=== PATIENT | female | born 1980 | race Caucasian/White ===

== ENCOUNTER → 2016-03-24 | Outpatient (CLI) | payer BC ==
--- NOTE | 2016-03-25 07:59 | US ---
EXAMINATION TYPE: US transvaginal DATE OF EXAM: 03/24/2016 4:09 PM COMPARISON: NONE CLINICAL HISTORY: 35-year-old female N92.0 Excessive Or Frequent Menstruation. Pre ablation scan. Date of LMP: 03/15/2016 TECHNIQUE: Multiple transvaginal sonographic images of the pelvis were obtained. Findings: Uterus: Anteverted measuring 9.9 x 5.5 x 5.3cm cm. Tiny cervical nabothian cysts. Endometrial Stripe: 1.0cm Right Ovary: 3.0 x 1.9 x 2.0cm cm for volume of 5.8 mL. There is a dominant follicle or functional c yst measuring 1.6 cm. Left Ovary: 2.7 x 1.9 x 2.1cm cm for a volume of 5.6 mL. No evident adnexal or cul-de-sac free fluid. IMPRESSION: 1.0 cm uniform endometrial stripe. Physiologic changes within the right ovary. No pelvic free fluid.
== END | disposition home or self-care (01) ==
LOC: RADUSWWP 15:40
PROVIDERS: ATTEND Obstetrics & Gynecology
DX: N92.0 Excessive and frequent menstruation with regular cycle (principal)
CPT/HCPCS: 76830

== ENCOUNTER → 2016-03-24 | Outpatient (CLI) | payer BC ==
[2016-03-24 16:11] LABS: Basophils % (A) 0 %; CH 28.6; CHCM 32.8; Eosinophils # (A) 0.1 k/uL (0-0.7); Eosinophils % (A) 2 %; HCT 39.9 % (34.0-46.0); HDW 2.57; HGB 12.9 gm/dL (11.4-16.0); Luc # (Auto) 0.09; Luc % (Auto) 2; Lymphocytes # (A) 1.6 k/uL (1.0-4.8); Lymphocytes % (A) 26 %; MCH 28.4 pg (25.0-35.0); MCHC 32.4 g/dL (31.0-37.0); MCV 87.8 fL (80.0-100.0); Mean Platelet Volume 6.9; Monocytes # (A) 0.3 k/uL (0-1.0); Monocytes % (A) 4 %; Neutrophils # (A) 4.1 k/uL (1.3-7.7); Neutrophils % (A) 66 %; RBC 4.55 m/uL (3.80-5.40); RDW 12.2 % (11.5-15.5); WBC 6.2 k/uL (3.8-10.6); WBC (Perox) 6.29
== END | disposition home or self-care (01) ==
LOC: LABPAT 15:33
PROVIDERS: ATTEND Obstetrics & Gynecology
DX: Z01.812 Encounter for preprocedural laboratory examination (principal)
CPT/HCPCS: 36415; 85025

== ENCOUNTER 2016-04-06 06:01 | Day surgery (SDC) | payer BC ==
[2016-03-31 15:41] VITALS: BMI 22.6
--- NOTE | 2016-04-03 13:16 | P.HPOB ---
History of Present Illness H&P Date: 04/03/16 Chief Complaint: Menorrhagia This patient is a pleasant 35 yr female who presented requesting an endometrial ablation secondary to heavy and long menses. Evaluation has included a pelvic ultrasound which was normal. Menses are heavy enough to interfere with life activities. She is not interested in hormonal treatment and she has had a tubal ligation for control. Review of Systems Constitutional: Denies chills, Denies fever Cardiovascular: Denies chest pain, Denies shortness of breath Respiratory: Denies cough Gastrointestinal: Denies abdominal pain, Denies diarrhea, Denies nausea, Denies vomiting Genitourinary: Reports as per HPI, Reports menorrhagia Menstruation: Reports menses 8 or > days, Reports period heavy Musculoskeletal: Denies myalgias Past Medical History Additional Past Medical History / Comment(s): Hx kidney stones. Positive "P" antibody History of Any Multi-Drug Resistant Organisms: None Reported Past Surgical History: Tonsillectomy, Tubal Ligation Past Anesthesia/Blood Transfusion Reactions: Postoperative Nausea & Vomiting ( PONV) Past Psychological History: No Psychological Hx Reported Smoking Status: Former smoker Past Alcohol Use History: Occasional Additional Past Alcohol Use History / Comment(s): Smoked 1/2 PPD for 18 yrs, quit in 2014. Past Drug Use History: None Reported - Past Family History Daughter(s) Family Medical History: Cancer Medications and Allergies Home Medications Medication Instructions Recorded Confirmed Type No Known Home Medications [No 03/31/16 03/31/16 History Known Home Medications] Allergies Allergy/AdvReac Type Severity Reaction Status Date / Time Penicillins Allergy Rash/Hives Verified 03/31/16 15:33 Exam - OBG Physical Exam Abdomen: bowel sounds normal, no diffuse tenderness, no bruit present, no guarding noted, no hepatomegaly, no splenomegaly, no mass Vulva: both: normal Vagina: normal moisture, no discharge Cervix: no lesion, no discharge Uterus: normal size Adnexa: both: normal Results Transvaginal ultrasound on 03/24 was normal. Assessment and Plan (1) Menorrhagia Narrative/Plan: This is a pleasant 35 yr female with menorrhagia requesting endometrial ablation for treatment. She and I have discussed this surgery and risks: infection, bleeding, possible uterine perforation and/or thermal injury. All of the patients questions were answered and a written consent obtained. Plan is hysteroscopy, D&C, and Novasure endometrial ablation. Status: Chronic
[~2016-04-06 06:01] MED LIST: DEXAMETHASONE SOD PHOSPHATE 10 MG/ML 1 ML VIAL IV ONE; HYDROmorphone 1 MG/ML 1 ML SYRINGE IVP PRN; LACTATED RINGERS 1,000 ML IV SCH; MIDAZOLAM 2 MG/2 ML VIAL IV PRN; ONDANSETRON 4 MG/2 ML VIAL IVP ONE; Pre Op ABX Message 1 EACH MISC MISCELLANE ONE; SCOPOLAMINE 1.5MG/72HR PATCH TRANSDERM ONE
[2016-04-06] MEDS ORDERED: LIDOCAINE 1% 20 ML VIAL (10MG/ML) FOR IV START INTRADERMA ONE (06:15)
[2016-04-06] MEDS ORDERED: PROPOFOL 10 MG/ML 20 ML VIAL IV ONE (06:53)
[2016-04-06] MEDS ORDERED: fentaNYL (PF) 50 MCG/ML 2 ML AMP ONE (06:53)
[2016-04-06] MEDS ORDERED: MIDAZOLAM 2 MG/2 ML VIAL ONE (06:53)
[2016-04-06] MEDS ORDERED: KETOROLAC 30 MG/ML 1 ML VIAL ONE (06:53)
[2016-04-06] MEDS ORDERED: LIDOCAINE 1% INJ 10MG/ML (20 ML MDV) ONE (06:53)
[2016-04-06 07:25] VITALS: TEMP 98.4
--- NOTE | 2016-04-06 07:28 | P.OP ---
Date of Procedure: 04/06/16 Preoperative Diagnosis: Menorrhagia Postoperative Diagnosis: Same Procedure(s) Performed: #1: Hysteroscopy. 2: Dilation and curettage. #3: NovaSure endometrial ablation. Anesthesia: MAC Surgeon: Leonard French Estimated Blood Loss (ml): 10 Urine output (ml): 30 Pathology: other (Uterine curettings) Condition: stable Disposition: PACU Indications for Procedure: Please see dictated H&P for intimate details of this patient's admission. Brief summary this is a pleasant 35-year-old multiparous patient with persistent menorrhagia requesting NovaSure endometrial ablation for treatment. Patient does understand the surgery and risks including risks of infection, bleeding, possible uterine perforation, and/or thermal injury. All the patient' s questions are answered and a written consent is obtained. Operative Findings: This patient had a normal intrauterine cavity without evidence of polyps, fibroids, or other growths. Description of Procedure: This patient is taken to the operating room where she is laid in the supine position. She subsequent undergoes general mask anesthesia without incident. With adequate level of anesthesia placed in dorsal lithotomy position. She has a vaginal perineal prep and drape. Examination under anesthesia shows a mid position uterus of normal size. I placed a weighted speculum the posterior vagina. The bladder is drained for 30 mL of clear urine. I grabbed the anterior lip of the cervix with an Allis clamp. Uterus is gently sounded to approximately 9 cm. With this done gentle dilation is done of the endocervix to allow the hysteroscope easily and uterine cavity. Hysteroscopy is performed and the intrauterine cavity appears normal and measures 6.5 cm in length. With this done the hysteroscope was then removed. Cervix is dilated more to allow a small curette easily and the uterine cavity. A gentle but vigorous 4 quadrant curettage is done for adequate sampling. With this done I open the NovaSure device appears to be intact. It is set at a length of 6.5 cm and then seated in the uterine cavity to a width of 4.7 cm. It does past cavity integrity test. It is then enabled at a 168 W setting for 75 seconds. The NovaSure device is then removed and again appears to be intact. Hysteroscopy is then performed again and the uterine cavity appears completely ablated up to the endocervix. This done the procedure is terminated. Allis clamps removed the weighted speculum was removed. All counts are correct 3. Patient is awakened from anesthesia and taken recovery room satisfactory condition. There are no complications.
[2016-04-06 08:01] VITALS: RESP 18
[2016-04-06 08:18] VITALS: BP 108/75; PULSE 68
== END 2016-04-06 08:34 | disposition home or self-care (01) ==
LOC: OR 06:01
PROVIDERS: ATTEND Obstetrics & Gynecology
DX: N92.0 Excessive and frequent menstruation with regular cycle (principal); Z88.0 Allergy status to penicillin; Z87.891 Personal history of nicotine dependence
CPT/HCPCS: 81025; 88305; 58563; J2250; J1100; J2405; J2001; J3010; J1885; J2704

== ENCOUNTER → 2017-02-23 | Outpatient (CLI) | payer BC ==
[2017-02-23 10:26] LABS: Basophils % (A) 0 %; Eosinophils # (A) 0.1 k/uL (0-0.7); Eosinophils % (A) 1 %; HCT 41.3 % (34.0-46.0); HGB 13.3 gm/dL (11.4-16.0); Lymphocytes # (A) 1.4 k/uL (1.0-4.8); Lymphocytes % (A) 29 %; MCH 28.1 pg (25.0-35.0); MCHC 32.3 g/dL (31.0-37.0); MCV 87.1 fL (80.0-100.0); Mean Platelet Volume 7.5; Monocytes # (A) 0.2 k/uL (0-1.0); Monocytes % (A) 4 %; Neutrophils # (A) 3.2 k/uL (1.3-7.7); Neutrophils % (A) 64 %; Platelet Count 180 k/uL (150-450); RBC 4.74 m/uL (3.80-5.40); RDW 13.4 % (11.5-15.5)
[2017-02-23 10:38] LABS: ALT 31 U/L (9-52); AST 18 U/L (14-36); Albumin 4.4 g/dL (3.5-5.0); Alkaline Phosphatase 69 U/L (38-126); Anion Gap 10 mmol/L; Blood Urea Nitrogen 12 mg/dL (7-17); Calcium 9.6 mg/dL (8.4-10.2); Carbon Dioxide 28 mmol/L (22-30); Chloride 105 mmol/L (98-107); Cholesterol 196 mg/dL (<200); Glucose 99 mg/dL (74-99); HDL Cholesterol 59 mg/dL (40-60); LDL Cholesterol,Calculated 118 mg/dL (0-99); Potassium 4.3 mmol/L (3.5-5.1); Sodium 143 mmol/L (137-145); Total Bilirubin 0.6 mg/dL (0.2-1.3); Triglycerides 94 mg/dL (<150)
[2017-02-23 10:54] LABS: T4, Free (Free Thyroxine) 0.93 ng/dL (0.78-2.19)
[2017-02-23 16:31] LABS: Insulin Level 8.6 mIU/mL (3.0-25.0)
== END | disposition home or self-care (01) ==
LOC: LABWHC1 09:53
PROVIDERS: ATTEND Family Medicine
DX: Z00.00 Encounter for general adult medical examination without abnormal findings (principal); R53.83 Other fatigue; R63.5 Abnormal weight gain
CPT/HCPCS: 36415; 80053; 80061; 82306; 82533; 83001; 83002; 83525; 84439; 84443; 85025

== ENCOUNTER → 2018-10-21 | Outpatient (CLI) | payer BC ==
--- NOTE | 2018-10-21 14:43 | CT ---
EXAMINATION TYPE: CT abdomen pelvis wo con DATE OF EXAM: 10/21/2018 COMPARISON: 10/06/2010 HISTORY: 38-year-old female Left flank pain with hematuria. History of stones. CT DLP: 344.2 mGycm. Automated exposure control for dose reduction was used. TECHNIQUE: Contiguous axial scanning of the abdomen and pelvis without IV contrast. Coronal and sagit med reconstructions performed. FINDINGS: Heart normal size without pericardial effusion. Lung bases clear without pleural effusion. Noncontrast appearance of the liver shows a subcentimeter hypodense lesion along the falciform ligame nt, likely tiny cyst. Noncontrast appearance of the gallbladder, adrenal glands, right kidney, spleen, and pancreas appear within normal limits. 1.5 cm calculus centrally within the left midpole with mild pelviectasis and possible punctate 1 mm c alculus at the left UPJ. Scattered nonenlarged and borderline sized mesenteric lymph nodes measuring up to 8 mm likely reactiv e/post inflammatory. No dilated small bowel, free fluid, or free air. Cecum hangs low within the pelvis. Appendix not delineated from adjacent bowel loops and adnexal stru ctures. Mild to moderate stool burden. No pericolonic inflammatory change. Mild circumferential bladder wall thickening. Multiple phleboliths on the right side of the pelvis. U terus anteverted. Moderate cul-de-sac free fluid likely physiologic. 3.5 cm cystic structure left adn exa. No pelvic lymphadenopathy. Bones: Mild to moderate degenerative disc disease L5-S1. IMPRESSION: 1. Possible punctate 1 mm calculus at the left UPJ with associated mild pelviectasis. 2. A 1.5 cm calculus centrally within the left renal midpole. 3. Mild circumferential bladder wall thickening. Correlate to exclude cystitis. 4. 3.5 cm cystic structure in the left adnexa, probable dominant follicle or functional cyst. 5. Moderate cul-de-sac free fluid likely physiologic. Clinically correlate.
== END | disposition home or self-care (01) ==
LOC: RADCTMAIN 12:35
PROVIDERS: ATTEND Family Medicine
DX: N20.0 Calculus of kidney (principal); N32.89 Other specified disorders of bladder; N83.8 Other noninflammatory disorders of ovary, fallopian tube and broad ligament
CPT/HCPCS: 74176

== ENCOUNTER → 2019-01-23 | Outpatient (CLI) | payer BC ==
--- NOTE | 2019-01-23 11:02 | MM ---
Reason for exam: screening (asymptomatic). Baseline mammogram. History: Took hormonal contraceptives beginning at age 19. Physical Findings: Nurse did not find any significant physical abnormalities on exam. MG 3D Screening Mammo W/Cad Bilateral CC and MLO view(s) were taken. The breast tissue is heterogeneously dense. This may lower the sensitivity of mammography. No suspicious abnormality. No significant new findings when compared with previous films. These results were verbally communicated with the patient and result sheet given to the patient on 01/23/19. ASSESSMENT: Negative, BI-RAD 1 RECOMMENDATION: Routine screening mammogram of both breasts in 1 year.
== END | disposition home or self-care (01) ==
LOC: RADMAMWWP 10:19
PROVIDERS: ATTEND Obstetrics & Gynecology
DX: Z12.31 Encounter for screening mammogram for malignant neoplasm of breast (principal)
CPT/HCPCS: 77063; 77067

== ENCOUNTER → 2020-07-03 | Outpatient (CLI) | payer BC ==
[2020-07-03 14:21] LABS: Basophils # (A) 0.02 X 10*3/uL (0.00-0.10); Basophils % (A) 0.3 %; Eosinophils % (A) 1.5 %; HCT 40.2 % (37.2-46.3); HGB 12.9 g/dL (12.0-15.0); Lymphocytes # (A) 1.31 X 10*3/uL (0.90-5.00); Lymphocytes % (A) 20.2 %; MCH 28.2 pg (27.0-32.0); MCHC 32.1 g/dL (32.0-37.0); Mean Platelet Volume 10.7 fL (9.5-12.2); Monocytes # (A) 0.53 X 10*3/uL (0.20-1.00); Monocytes % (A) 8.2 %; Neutrophils % (A) 69.3 %; Platelet Count 163 X 10*3/uL (140-440); RBC 4.57 X 10*6/uL (4.10-5.20); RDW 12.5 % (11.5-14.5); WBC 6.49 X 10*3/uL (4.50-10.00)
[2020-07-03 16:44] LABS: African American GFR (CKD) 82.2 (60.0-200.0); Albumin 4.3 g/dL (3.80-4.90); Albumin/Globulin Ratio 2.15 (1.60-3.17); Anion Gap 7.1 mmol/L (4.00-12.00); Carbon Dioxide 23.9 mmol/L (21.6-31.8); Chol/HDL Ratio 3.68; LDL Cholesterol,Calculated 118.6 mg/dL (0.0-131.0); Non-African American GFR(CKD) 70.9 (60.0-200.0); Potassium 4.4 mmol/L (3.5-5.5); Total Bilirubin 0.4 mg/dL (0.2-1.2); Total Protein 6.3 g/dL (6.2-8.2); VLDL Calculation 15.4 mg/dL (5.00-40.00)
[2020-07-03 16:52] LABS: T4, Free (Free Thyroxine) 1.1 ng/dL (0.80-1.80)
== END | disposition home or self-care (01) ==
LOC: LABWHC1 08:43
PROVIDERS: ATTEND Nurse Practitioner Adult Health
DX: Z00.00 Encounter for general adult medical examination without abnormal findings (principal)
CPT/HCPCS: 36415; 80053; 80061; 84439; 84443; 85025

== ENCOUNTER 2020-07-07 16:47 | Emergency (ER) | payer BC ==
[2020-07-07 16:53] VITALS: TEMP 101
--- NOTE | 2020-07-07 17:01 | ED ---
General Adult HPI - General Chief complaint: Arrhythmia/Palpitations Stated complaint: side pain, SOB Time Seen by Provider: 07/07/20 17:00 Source: patient Mode of arrival: wheelchair Limitations: no limitations - History of Present Illness Initial comments: Patient presents the ED with her for evaluation. Patient states that she developed a fever, rapid heart palpitations and dyspnea earlier this afternoon. Patient states that her palpitations and dyspnea have currently resolved. Patient states that she took a dose of ibuprofen and Tylenol about 5 hours ago. Patient also states that she is currently on Bactrim antibiotic treatment for a UTI. Patient states that she was diagnosed with a UTI about 5 days ago, and she states that she has been taking the Bactrim ever since then. Patient also states that she has had left flank pain and bilateral "groin pain" for the past week or so. Patient states that she had Covid in April, and she denies Covid vaccination. Patient denies trauma or injury, headache, focal neuro deficit, sore throat, chest pain, cough or cold symptoms, dizziness/syncope, abdominal pain, nausea/vomiting/diarrhea, dysuria/hematuria/urinary frequency/urinary symptoms, leg or calf swelling or pain, or any other symptoms or complaints. - Related Data Home Medications Medication Instructions Recorded Confirmed Budesonide/Glycopyr/Formoterol 2 puff INHALATION RT-BID PRN 07/07/20 07/07/20 [Breztri Aerosphere Inhaler] Cetirizine HCl 10 mg PO DAILY 07/07/20 07/07/20 Polyethylene Glycol 3350 [Miralax] 17 gm PO DAILY PRN 07/07/20 07/07/20 Sulfamethox-Tmp 800-160Mg [Bactrim 1 tab PO Q12HR 07/07/20 07/07/20 DS 800-160 mg] Tamsulosin HCl [Flomax] 0.4 mg PO DAILY 07/07/20 07/07/20 Allergies Allergy/AdvReac Type Severity Reaction Status Date / Time Penicillins Allergy Rash/Hives Verified 07/07/20 19:03 Review of Systems ROS Statement: Those systems with pertinent positive or pertinent negative responses have been documented in the HPI. ROS Other: All systems not noted in ROS Statement are negative. Past Medical History Additional Past Medical History / Comment(s): Covid 05/05 History of Any Multi-Drug Resistant Organisms: None Reported Past Surgical History: Tonsillectomy, Tubal Ligation, Uterine Ablation Past Psychological History: No Psychological Hx Reported Smoking Status: Former smoker Past Alcohol Use History: Occasional Past Drug Use History: Unable to Obtain General Exam Limitations: no limitations General appearance: alert, in no apparent distress Head exam: Present: atraumatic, normocephalic Eye exam: Present: normal appearance, EOMI ENT exam: Present: normal oropharynx, mucous membranes moist Neck exam: Present: other (Trachea is in midline). Absent: tenderness, meningis mus Respiratory exam: Present: normal lung sounds bilaterally. Absent: respiratory distress, wheezes, rales, rhonchi, stridor Cardiovascular Exam: Present: normal rhythm, tachycardia, normal heart sounds, other (Normal radial pulses bilaterally) GI/Abdominal exam: Present: soft. Absent: distended, tenderness, guarding Extremities exam: Present: other (Negative Homans sign bilaterally). Absent: tenderness, pedal edema, calf tenderness Back exam: Absent: tenderness, CVA tenderness (R), CVA tenderness (L) Neurological exam: Present: alert, oriented X3. Absent: motor sensory deficit Psychiatric exam: Present: normal affect, normal mood Skin exam: Present: warm, dry, intact, normal color Course Vital Signs 07/07/20 07/07/20 07/07/20 16:48 17:53 22:39 Temperature 101.0 F H Pulse Rate 132 H 81 78 Respiratory 22 16 18 Rate Blood Pressure 101/62 121/78 129/78 O2 Sat by Pulse 98 98 99 Oximetry - Reevaluation(s) Reevaluation #1: 07/07/20 23:00 Patient remains in a sinus rhythm on the cardiac catheterization technician, and her heart rate has now improved to the 80s. Patient states that her symptoms (palpitations and dyspnea) have now resolved. Patient denies development of any new symptoms wh ile in the ED. Patient remains alert and breathing comfortably with a normal room air oxygen saturation. Patient and are aware the patient's test results, and patient feels comfortable going home at this time. Patient was counseled about fever control, palpitations and dyspnea. Patient was instructed to complete the course of Bactrim that she is currently taking. Patient was also instructed to follow up closely with her primary care provider. Patient was clearly explained return and follow-up instructions, and she was instructed to have a low threshold for return to the emergency department should her symptoms worsen. Patient feels comfortable with this plan. EKG Findings - EKG Comments: EKG Findings:: Sinus tachycardia, ventricular rate of 114 bpm, no ectopy, normal RI and QRS intervals, normal QT interval, normal axis, no ST or T-wave abnormality Medical Decision Making - Medical Decision Making Patient is currently in a normal sinus rhythm on the cardiac catheterization technician. Patient's labs are fairly unremarkable, other than mild thrombocytopenia and mild l eukopenia. Patient's UA is not suggestive of infection. Patient's imaging studies are fairly unremarkable. Patient has no evidence of pneumonia on chest imaging. Patient has no obstructing stones seen on CT abdomen/pelvis. I do not suspect that the patient's symptoms/fever are from an emergent medical condition at this time. Patient was instructed to complete the course of Bactrim that she is currently taking. Will discharge patient home with her at this time. Patient was instructed to follow up closely with her primary care provider for further evaluation of her symptoms and her thrombocytopenia/leukopenia. - Lab Data Result diagrams: 07/07/20 17:27 07/07/20 17:27 Lab Results 07/07/20 07/07/20 07/07/20 Range/Units 17:27 17:27 17:27 WBC 3.2 L (3.8-10.6) k/uL RBC 4.41 (3.80-5.40) m/uL Hgb 12.5 (11.4-16.0) gm/dL Hct 37.5 (34.0-46.0) % MCV 85.1 (80.0-100.0) fL MCH 28.4 (25.0-35.0) pg MCHC 33.4 (31.0-37.0) g/dL RDW 13.2 (11.5-15.5) % Plt Count 94 L (150-450) k/uL MPV 8.5 Neutrophils % 85 % Lymphocytes % 7 % Monocytes % 6 % Eosinophils % 1 % Basophils % 0 % Neutrophils # 2.7 (1.3-7.7) k/uL Lymphocytes # 0.2 L (1.0-4.8) k/uL Monocytes # 0.2 (0-1.0) k/uL Eosinophils # 0.0 (0-0.7) k/uL Basophils # 0.0 (0-0.2) k/uL Manual Slide Review Performed D-Dimer (<0.60) mg/L FEU Sodium 132 L (137-145) mmol/L Potassium 4.2 (3.5-5.1) mmol/L Chloride 104 (98-107) mmol/L Carbon Dioxide 21 L (22-30) mmol/L Anion Gap 7 mmol/L BUN 9 (7-17) mg/dL Creatinine 1.00 (0.52-1.04) mg/dL Est GFR (CKD-EPI)AfAm 83 (>60 ml/min/1.73 sqM) Est GFR (CKD-EPI)NonAf 72 (>60 ml/min/1.73 sqM) Glucose 111 H (74-99) mg/dL Plasma Lactic Acid Dandre (0.7-2.0) mmol/L Calcium 8.4 (8.4-10.2) mg/dL Total Bilirubin <0.1 L (0.2-1.3) mg/dL AST 32 (14-36) U/L ALT 22 (4-34) U/L Alkaline Phosphatase 63 (38-126) U/L Total Protein 6.3 (6.3-8.2) g/dL Albumin 4.0 (3.5-5.0) g/dL Urine Color Light Yellow Urine Appearance Clear (Clear) Urine pH 5.5 (5.0-8.0) Ur Specific [place] 1.017 (1.001-1.035) Urine Protein Negative (Negative) Urine Glucose (UA) Negative (Negative) Urine Ketones Negative (Negative) Urine Blood Trace H (Negative) Urine Nitrite Negative (Negative) Urine Bilirubin Negative (Negative) Urine Urobilinogen <2.0 (<2.0) mg/dL Ur Leukocyte Esterase Negative (Negative) Urine RBC 1 (0-5) /hpf Urine WBC <1 (0-5) /hpf Ur Squamous Epith Cells 1 (0-4) /hpf Urine Mucus Rare H (None) /hpf 07/07/20 07/07/20 Range/Units 17:27 17:27 WBC (3.8-10.6) k/uL RBC (3.80-5.40) m/uL Hgb (11.4-16.0) gm/dL Hct (34.0-46.0) % MCV (80.0-100.0) fL MCH (25.0-35.0) pg MCHC (31.0-37.0) g/dL RDW (11.5-15.5) % Plt Count (150-450) k/uL MPV Neutrophils % % Lymphocytes % % Monocytes % % Eosinophils % % Basophils % % Neutrophils # (1.3-7.7) k/uL Lymphocytes # (1.0-4.8) k/uL Monocytes # (0-1.0) k/uL Eosinophils # (0-0.7) k/uL Basophils # (0-0.2) k/uL Manual Slide Review D-Dimer 0.80 H (<0.60) mg/L FEU Sodium (137-145) mmol/L Potassium (3.5-5.1) mmol/L Chloride (98-107) mmol/L Carbon Dioxide (22-30) mmol/L Anion Gap mmol/L BUN (7-17) mg/dL Creatinine (0.52-1.04) mg/dL Est GFR (CKD-EPI)AfAm (>60 ml/min/1.73 sqM) Est GFR (CKD-EPI)NonAf (>60 ml/min/1.73 sqM) Glucose (74-99) mg/dL Plasma Lactic Acid Dandre 1.5 (0.7-2.0) mmol/L Calcium (8.4-10.2) mg/dL Total Bilirubin (0.2-1.3) mg/dL AST (14-36) U/L ALT (4-34) U/L Alkaline Phosphatase (38-126) U/L Total Protein (6.3-8.2) g/dL Albumin (3.5-5.0) g/dL Urine Color Urine Appearance (Clear) Urine pH (5.0-8.0) Ur Specific [place] (1.001-1.035) Urine Protein (Negative) Urine Glucose (UA) (Negative) Urine Ketones (Negative) Urine Blood (Negative) Urine Nitrite (Negative) Urine Bilirubin (Negative) Urine Urobilinogen (<2.0) mg/dL Ur Leukocyte Esterase (Negative) Urine RBC (0-5) /hpf Urine WBC (0-5) /hpf Ur Squamous Epith Cells (0-4) /hpf Urine Mucus (None) /hpf - Radiology Data Radiology results: report reviewed (CT angiography chest: No acute PE or cardiopulmonary abnormality; CT abdomen/pelvis without contrast: Large calculus left kidney without significant change compared to old exam, left side hydron ephrosis but no obstructing calculus seen, mild subsegmental atelectasis left lung base) Disposition Clinical Impression: Palpitations, Acute febrile illness, Thrombocytopenia, Leukopenia Disposition: HOME SELF-CARE Condition: Stable Instructions (If sedation given, give patient instructions): Heart Palpitations (ED), Fever in Adults (ED), Thrombocytopenia (ED) Additional Instructions: Return to the ER immediately should you develop increased shortness of breath, any significant pain, chest pain, increased or persistent heart palpitations, feeling dizzy or faint, or new or worsening symptoms. Follow up closely with your primary care provider. Is patient prescribed a controlled substance at d/c from ED?: No Referrals: Shad Lion MD [Primary Care Provider] - 1-2 days Time of Disposition: 23:09
[2020-07-07] MEDS ORDERED: ACETAMINOPHEN TAB 500 MG TAB PO STA (17:09)
[2020-07-07] MEDS ORDERED: SODIUM CHLORIDE 0.9% 1,000 ML IV STA (17:09)
[2020-07-07 17:48] LABS: Appearance,Urine Clear (Clear); Bilirubin,Urine Negative (Negative); Blood,Urine Trace (Negative); Color,Urine Light Yellow; Glucose,Urine (UA) Negative (Negative); Ketones,Urine Negative (Negative); Leukocyte Esterase,Urine Negative (Negative); Mucus,Urine Rare /hpf; Nitrite,Urine Negative (Negative); PH, Urine 5.5 (5.0-8.0); Protein,Urine Negative (Negative); RBC,Urine 1 /hpf (0-5); Specific Gravity,Urine 1.017 (1.001-1.035); Squamous Epithelial Cell,Urine 1 /hpf (0-4); Urobilinogen,Urine <2.0 mg/dL (<2.0); WBC,Urine <1 /hpf (0-5)
[2020-07-07 18:12] LABS: ALT 22 U/L (4-34); AST 32 U/L (14-36); African American GFR (CKD) 83 (>60 ml/min/1.73 sqM); Alkaline Phosphatase 63 U/L (38-126); Anion Gap 7 mmol/L; Blood Urea Nitrogen 9 mg/dL (7-17); Calcium 8.4 mg/dL (8.4-10.2); Carbon Dioxide 21 mmol/L (22-30); Chloride 104 mmol/L (98-107); Glucose 111 mg/dL (74-99); Non-African American GFR(CKD) 72 (>60 ml/min/1.73 sqM); Potassium 4.2 mmol/L (3.5-5.1); Sodium 132 mmol/L (137-145); Total Bilirubin <0.1 mg/dL (0.2-1.3); Total Protein 6.3 g/dL (6.3-8.2)
[2020-07-07 18:39] LABS: Basophils % (A) 0 %; Eosinophils % (A) 1 %; HCT 37.5 % (34.0-46.0); HGB 12.5 gm/dL (11.4-16.0); Lymphocytes # (A) 0.2 k/uL (1.0-4.8); Lymphocytes % (A) 7 %; MCH 28.4 pg (25.0-35.0); MCHC 33.4 g/dL (31.0-37.0); MCV 85.1 fL (80.0-100.0); Mean Platelet Volume 8.5; Monocytes # (A) 0.2 k/uL (0-1.0); Monocytes % (A) 6 %; Neutrophils # (A) 2.7 k/uL (1.3-7.7); Neutrophils % (A) 85 %; RBC 4.41 m/uL (3.80-5.40); RDW 13.2 % (11.5-15.5); WBC 3.2 k/uL (3.8-10.6)
[2020-07-07 19:03] LABS: Platelet Count 94 k/uL (150-450)
--- NOTE | 2020-07-07 21:14 | CT ---
EXAMINATION TYPE: CT abdomen pelvis wo con DATE OF EXAM: 07/07/2020 COMPARISON: 10/21/2018 HISTORY: LT flank pain, fever CT DLP: 661 mGycm Automated exposure control for dose reduction was used. Images obtained from the diaphragm to the floor the pelvis with no contrast. Lung bases are clear of consolidation. There is mild subsegmental atelectasis at the left lung base. There is no pleural effusion. Heart size is normal. There is no pericardial effusion. There is small hiatal hernia. Spleen liver gallbladder appear normal. Bile ducts are not dilated. Sto mach is intact. There is no pancreatic mass. There is no adrenal mass. Kidneys have normal size. There is 1.5 cm calculus in the left kidney. Ther e is left side hydronephrosis. I see no definite hydroureter. Right kidney shows no sign of obstructi on. There is no evidence of a renal mass. There is no retroperitoneal adenopathy. The bladder distends smoothly. There is no inguinal hernia. T here is no free fluid in the pelvis. Uterus is anteverted. There is small amount of free fluid in the cul-de-sac. There is no mesenteric edema. There is no ascites or free air. There is no bowel obstruction. Appendi x is not definitely seen. No sign of thickened appendix. Lumbar vertebra have normal alignment. There is vacuum disc at L5-S1. There is no compression fractur e. IMPRESSION: Large calculus left kidney without significant change compared to old exam. Left side hydronephrosis but no obstructing calculus seen. This appears similar to old exam. Mild subsegmental atelectasis lef t lung base is new compared to old exam.
--- NOTE | 2020-07-07 21:16 | CT ---
EXAMINATION TYPE: CT chest angio for PE DATE OF EXAM: 07/07/2020 COMPARISON: None available. HISTORY: Elevated d-dimer, dyspnea, tachycardia. Hx covid April 2020 CT DLP: 248 mGycm Automated exposure control for dose reduction was used. CONTRAST: CT Chest for pulmonary embolism performed with with IV Contrast, patient injected with 100 mL of Isov ue 370. FINDINGS: LUNGS: There is mild dependent atelectasis. Otherwise lungs are grossly clear, there is no concerning parenchymal mass or nodule identified. There is no pleural effusion or pneumothorax seen. The tra cheobronchial tree is patent. MEDIASTINUM: There is satisfactory enhancement of the pulmonary artery and its branches, there is no CT evidence for pulmonary embolism. There are no greater than 1 cm hilar or mediastinal lymph nodes. No pericardial effusion is seen. Incidental aberrant right subclavian artery. OTHER: No additional significant abnormality is seen. IMPRESSION: No acute PE or cardiopulmonary abnormality. Incidental aberrant right subclavian artery.
[2020-07-07 22:40] VITALS: BP 129/78; PULSE 78; RESP 18
== END 2020-07-07 23:19 | disposition home or self-care (01) ==
LOC: EC 16:47
DX: R00.2 Palpitations (principal); D69.6 Thrombocytopenia, unspecified; D72.819 Decreased white blood cell count, unspecified; K44.9 Diaphragmatic hernia without obstruction or gangrene; N13.2 Hydronephrosis with renal and ureteral calculous obstruction; Q27.8 Other specified congenital malformations of peripheral vascular system; Z87.891 Personal history of nicotine dependence; Z88.0 Allergy status to penicillin
CPT/HCPCS: 36415; 85379; 80053; 83605; 85025; 81001; 87040; 71275; 74176; 99285; 96360; Q9967; 93005

== ENCOUNTER → 2020-12-20 | Outpatient (CLI) | payer BC ==
[2020-12-20 12:45] LABS: Basophils % (A) 0 %; Eosinophils # (A) 0.1 k/uL (0-0.7); Eosinophils % (A) 2 %; HCT 42.3 % (34.0-46.0); HGB 14.6 gm/dL (11.4-16.0); Lymphocytes % (A) 35 %; MCHC 34.5 g/dL (31.0-37.0); MCV 86.9 fL (80.0-100.0); Mean Platelet Volume 7.5; Monocytes # (A) 0.2 k/uL (0-1.0); Monocytes % (A) 4 %; Neutrophils # (A) 3.3 k/uL (1.3-7.7); Neutrophils % (A) 57 %; Platelet Count 178 k/uL (150-450); RBC 4.87 m/uL (3.80-5.40); RDW 12.6 % (11.5-15.5); WBC 5.7 k/uL (3.8-10.6)
[2020-12-20 12:49] LABS: Appearance,Urine Clear (Clear); Bilirubin,Urine Negative (Negative); Blood,Urine Trace (Negative); Color,Urine Yellow; Glucose,Urine (UA) Negative (Negative); Ketones,Urine Negative (Negative); Leukocyte Esterase,Urine Negative (Negative); Mucus,Urine Rare /hpf; Nitrite,Urine Negative (Negative); PH, Urine 5.5 (5.0-8.0); Protein,Urine Negative (Negative); RBC,Urine 13 /hpf (0-5); Specific Gravity,Urine 1.019 (1.001-1.035); Urobilinogen,Urine <2.0 mg/dL (<2.0); WBC,Urine 1 /hpf (0-5)
[2020-12-20 12:54] LABS: African American GFR (CKD) >90 (>60 ml/min/1.73 sqM); Anion Gap 8 mmol/L; Blood Urea Nitrogen 11 mg/dL (7-17); Carbon Dioxide 23 mmol/L (22-30); Chloride 107 mmol/L (98-107); Glucose 100 mg/dL (74-99); Non-African American GFR(CKD) 90 (>60 ml/min/1.73 sqM); Potassium 4.1 mmol/L (3.5-5.1); Sodium 138 mmol/L (137-145)
== END | disposition home or self-care (01) ==
LOC: LABPAT 11:45
PROVIDERS: ATTEND Urology
DX: N20.0 Calculus of kidney (principal); R31.0 Gross hematuria
CPT/HCPCS: 36415; 80048; 81001; 85025; 87086

== ENCOUNTER 2020-12-30 10:01 | Day surgery (SDC) | payer BC ==
[2020-12-25 14:15] VITALS: BMI 25.8
[~2020-12-30 10:01] MED LIST changes: -DEXAMETHASONE SOD PHOSPHATE 10 MG/ML 1 ML VIAL IV ONE; +DEXAMETHASONE SOD PHOSPHATE 4 MG/ML 1 ML VIAL IV ONE; +HYDROmorphone 0.5 MG/0.5 ML SYRINGE IVP PRN; -HYDROmorphone 1 MG/ML 1 ML SYRINGE IVP PRN; -LACTATED RINGERS 1,000 ML IV SCH; -Pre Op ABX Message 1 EACH MISC MISCELLANE ONE
[2020-12-30] MEDS ORDERED: LIDOCAINE 1% (10MG/ML) FOR IV START SQ ONE (10:50)
[2020-12-30] MEDS: LACTATED RINGERS 1,000 ML IV SCH (10:50)
--- NOTE | 2020-12-30 10:53 | XR ---
EXAMINATION TYPE: XR KUB DATE OF EXAM: 12/30/2020 COMPARISON: 10/06/2010 HISTORY: Left kidney stone TECHNIQUE: One view abdominal series FINDINGS: The osseous structures are intact. The bowel gas pattern is nonspecific. Large left kidney stone flower suring 1.6 cm likely within the renal pelvis. Tiny calcifications in the pelvis likely vascular. IMPRESSION: 1. Left renal stone measuring 1.6 cm.
--- NOTE | 2020-12-30 10:56 | P.HPIHPCON ---
History of Present Illness H&P Date: 12/30/20 Chief Complaint: Left-sided renal stone This is a 40-year-old female history of a 1.6 cm left-sided lower pole stone. She symptomatically from her stone. Discussed with her given the location of her stone the preferred approach would be a percutaneous nephrolithotomy. Dis cussed with her the option of ESWL, ureteroscopy. Risk and benefit of each approach were discussed in detail. She agreed to proceed with left-sided PCNL. Discussed the risk which includes but not limited to bleeding, infection, injury to nearby organs which includes but not limited to bleeding, lung, bowel. Discussed with her potential of needing additional procedures in the future. Discussed risk from anesthesia. She understood all the risk and agreed to proceed Consent for Procedure: I have explained the operation/procedure to the patient, including the risks, benefits, side effects, alternative therapies (including not receiving the proposed treatment or service), the likelihood of the patient achieving his/her goals, and potential recuperation problems for the procedure/sedation/analgesia, as well as any blood products, if indicated. I also explained to the patient the risks, benefits and side effects of the alternatives, as well as the risks related to not receiving the proposed procedure, care, treatment, or services. - Constitutional Constitutional: Denies chills, Denies fever - EENT Ears, nose, mouth and throat: Denies headache, Denies sore throat - Cardiovascular Cardiovascular: Denies chest pain, Denies shortness of breath - Respiratory Respiratory: Denies cough, Denies 7 - Gastrointestinal Gastrointestinal: Denies abdominal pain, Denies diarrhea, Denies nausea, Denies vomiting - Genitourinary (Female) Genitourinary: Reports flank pain Past Medical History Past Medical History: Renal Disease Additional Past Medical History / Comment(s): Hx Covid 05/05. Hx of and current kidney stones. History of Any Multi-Drug Resistant Organisms: None Reported Past Surgical History: Tonsillectomy, Tubal Ligation, Uterine Ablation Past Anesthesia/Blood Transfusion Reactions: No Reported Reaction, Motion Sickness, Postoperative Nausea & Vomiting (PONV) Past Psychological History: No Psychological Hx Reported Smoking Status: Former smoker Past Alcohol Use History: Occasional Additional Past Alcohol Use History / Comment(s): Quit smoking in 2015. Past Drug Use History: None Reported - Past Family History Mother Family Medical History: No Reported History Medications and Allergies Home Medications Medication Instructions Recorded Confirmed Type Acetaminophen [Tylenol] 1,000 mg PO Q6H PRN 12/25/20 12/30/20 History Ibuprofen [Motrin] 600 mg PO BID PRN 12/25/20 12/25/20 History Allergies Allergy/AdvReac Type Severity Reaction Status Date / Time Penicillins Allergy Rash/Hives Verified 12/25/20 14:03 Surgical - Exam Vital Signs Temp Pulse Resp BP Pulse Ox 97.3 F L 76 16 111/67 97 12/30/20 10:33 12/30/20 10:33 12/30/20 10:33 12/30/20 10:33 12/30/20 10:33 - General no distress, moderate pain - Eyes PERRL, normal ocular movement - ENT normal nares, normal mucosa - Respiratory normal expansion, normal respiratory effort - Abdomen Abdomen: soft Assessment and Plan Assessment: 40-year-old female history of left-sided renal stone -Or for left-sided PCNL
[2020-12-30] MEDS ORDERED: ACETAMINOPHEN TAB 325 MG TAB PO PRN (12:15)
[2020-12-30] MEDS ORDERED: MAG HYDROX/AL HYDROX/SIMETH 30 ML CUP PO PRN (12:15)
[2020-12-30] MEDS ORDERED: ONDANSETRON 4 MG/2 ML VIAL IVP PRN (12:15)
[2020-12-30] MEDS ORDERED: MORPHINE SULFATE 4 MG/ML SYRINGE IVP PRN (12:17)
[2020-12-30] MEDS ORDERED: fentaNYL (PF) 50 MCG/ML 2 ML AMP ONE (12:25)
[2020-12-30] MEDS ORDERED: PROPOFOL 10 MG/ML 20 ML VIAL IV ONE (12:25)
[2020-12-30] MEDS ORDERED: ROCURONIUM 10 MG/ML (5 ML VIAL) IV ONE (12:25)
[2020-12-30] MEDS ORDERED: MIDAZOLAM 2 MG/2 ML VIAL ONE (12:25)
[2020-12-30] MEDS ORDERED: LIDOCAINE 1% INJ 10MG/ML (20 ML MDV) ONE (12:25)
[2020-12-30] MEDS: GENTAMICIN 120 MG in SODIUM CHLORIDE 0.9% 100 ML IVPB PRN ×2 (12:28→13:11)
[2020-12-30] MEDS: CIPROFLOXACIN/DEXTROSE PMX 400 MG in DEXTROSE/WATER 1 200ML.BAG IVPB PRN ×2 (12:28→12:38)
[2020-12-30] MEDS ORDERED: LACTATED RINGERS 1,000 ML IV ONE (14:03)
--- NOTE | 2020-12-30 14:26 | FL ---
EXAMINATION TYPE: FL Perc Nephrostomy New Access DATE OF EXAM: 12/30/2020 COMPARISON: NONE HISTORY: Left renal calculus Procedure had been discussed with the patient by Dr. Ndiaye, risks, benefits, alternatives, were dis cussed and any questions were answered. Informed consent was obtained. The patient was in a semipro ne position prepped and draped on the OR table in the usual sterile fashion. Utilizing a 15 cm lengt h Chiba needle a single pass was made into a lower pole posterior calyx under fluoroscopic guidance. An 0.018 guidewire is passed through the needle and there was placement of a 6-Beninese catheter sheat h system. There was conversion to a 0.035 system was performed with passage of a guidewire into the ureter utilizing a directional catheter. A second safety wire was placed. Remaining portion of pro cedure performed by . Approximately 1 minute and 28 seconds of fluoroscopy was provided. IMPRESSION: 1. Successful intraoperative left nephrostomy prior to nephrolithotomy.
--- NOTE | 2020-12-30 14:34 | P.OP ---
Date of Procedure: 12/30/20 Preoperative Diagnosis: Left-sided renal stone Postoperative Diagnosis: Same Procedure(s) Performed: Left-sided percutaneous nephrolithotomy, cystoscopy, left ureteral catheterization Implants: 10-Finnish left nephrostomy tube Anesthesia: HILTONA Surgeon: Nabor Taylor Estimated Blood Loss (ml): 50 Pathology: other (left renal stone) Condition: stable Disposition: PACU Indications for Procedure: This is a 40-year-old female history of a 1.6 cm left-sided lower pole stone. She symptomatically from her stone. Discussed with her given the location of her stone the preferred approach would be a percutaneous nephrolithotomy. Discussed with her the option of ESWL, ureteroscopy. Risk and benefit of each approach were discussed in detail. She agreed to proceed with left-sided PCNL. Discussed the risk which includes but not limited to bleeding, infection, injury to nearby organs which includes but not limited to bleeding, lung, bowel. Discussed with her potential of needing additional procedures in the future. Discussed risk from anesthesia. She understood all the risk and agreed to proceed Operative Findings: Stone has migrated to the renal pelvis Description of Procedure: Patient was brought to the operating room general anesthesia was induced she was prepped and draped in sterile fashion and placed in frog leg position on the stretcher. Cystoscopy fitted with a 21-Finnish sheath was inserted per urethra, brief cystoscopy was performed showed no abnormality within the bladder, of note I was not able to visualize the dome lateral wall the bladder completely. Attention was then carried to the left ureteral orifice which was intubated with a balloon occluding catheter. 16-Finnish Bennett was placed, and the balloon catheter was secured to the Bennett. At this time the patient was placed in prone position, all pressure points were padded. The left flank was prepped and draped in sterile fashion. Next air was injected through the balloon occluding catheter, and left renal access was obtained by Dr. Garduno, please see his op note for his portion of the operation. After 2 wires were passed down the ureter a nephrostomy balloon dilator was passed over this wire, and under fluoroscopy the tract was dilated. Next a 30-Finnish access sheath was passed over the balloon dilator and into the kidney. The access was at the lower calyx. Next the rigid nephroscope was advanced through the access sheath and a large stone was visualized in the renal pelvis. Using the ultrasound the stone was fragmented into small fragments, the fragments were removed and sent for analysis. Repeat renoscopy showed no additional fragments within the kidney. Next a flexible cystoscope was advanced through the access sheath and renoscopy was performed evaluating all the calyx which showed no other stones within the kidney, there was no injury to the kidney. Next the flexible ureteroscope was advanced through the access sheath and down the ureter, the flexible ureteroscope was advanced all the way down to the distal ureter which showed no stone fragments, or any narrowing or strictures within the ureter. Pullback ureteroscopy was performed showed no injury to the ureter or any ureteral fragments. At this time a 10-Finnish nephrostomy tube was passed over the wire, the location was confirmed on fluoroscopy. The subcutaneous tissues were closed using 2-0 Vicryl in simple fashion. The tube was secured to the patient's skin using 2-0 silk. Sterile dressing was placed. Patient tolerated the procedure well was taken to recovery in stable condition
[2020-12-30] MEDS: KETOROLAC 30 MG/ML 1 ML VIAL IVP SCH ×3 (15:07→21:45)
[2020-12-30] MEDS: DEXTROSE 5%-0.45% NACL 1,000 ML IV SCH (15:37)
[2020-12-30] MEDS: ACETAMINOPHEN TAB 325 MG TAB PO SCH ×2 (16:05→20:19)
[2020-12-30] MEDS: HEPARIN SODIUM,PORCINE/PF 5,000 UNIT/0.5 ML SYRINGE SQ SCH (20:21)
[2020-12-31] MEDS ORDERED: LEVOFLOXACIN 500MG-D5W PMX 500 MG in DEXTROSE/WATER 1 100ML.BAG IVPB SCH
[2020-12-31] MEDS: ACETAMINOPHEN TAB 325 MG TAB PO SCH ×4 (00:28→13:33)
[2020-12-31] MEDS: KETOROLAC 30 MG/ML 1 ML VIAL IVP SCH ×2 (02:33→09:10)
[2020-12-31] MEDS: DEXTROSE 5%-0.45% NACL 1,000 ML IV SCH ×2 (02:33→13:22)
[2020-12-31 08:16] LABS: HCT 35.4 % (34.0-46.0); HGB 11.9 gm/dL (11.4-16.0); MCH 29.5 pg (25.0-35.0); MCHC 33.6 g/dL (31.0-37.0); MCV 87.6 fL (80.0-100.0); Mean Platelet Volume 7.6; Platelet Count 179 k/uL (150-450); RBC 4.04 m/uL (3.80-5.40); RDW 12.1 % (11.5-15.5); WBC 9.3 k/uL (3.8-10.6)
[2020-12-31] MEDS: HEPARIN SODIUM,PORCINE/PF 5,000 UNIT/0.5 ML SYRINGE SQ SCH (09:09)
[2020-12-31 09:16] VITALS: BP 92/59; PULSE 66; RESP 18; TEMP 98.2
--- NOTE | 2020-12-31 12:38 | P.DS ---
Providers Expected date of discharge: 12/31/20 Attending physician: Nabor Taylor MD Primary care physician: Jacklyn He Hospital Course: On the day of admission, the patient underwent an uncomplicated left percutaneous nephrolithotomy (PCNL). The perioperative course was unremarkable. The patient remained afebrile with stable vital signs. On the first postoperative day, both the left nephrostomy tube and Bennett catheter were draining clear yellow urine. She reported mild discomfort, which was controlled with Tylenol and Toradol. Procedures: Left PCNL in 12/30/2020 Patient Condition at Discharge: Good Plan - Discharge Summary Discharge Rx Participant: No New Discharge Prescriptions: New Ketorolac [Toradol] 10 mg PO Q6HR PRN #12 tab PRN Reason: Pain No Action Ibuprofen [Motrin] 600 mg PO BID PRN PRN Reason: Pain Acetaminophen [Tylenol] 1,000 mg PO Q6H PRN PRN Reason: Pain Discharge Medication List Acetaminophen [Tylenol] 1,000 mg PO Q6H PRN 12/25/20 [History] Ibuprofen [Motrin] 600 mg PO BID PRN 12/25/20 [History] Ketorolac [Toradol] 10 mg PO Q6HR PRN #12 tab 12/31/20 [Rx] Patient Instructions/Handouts: *Surgery [facility] - Scopalamine Patch Instructions Activity/Diet/Wound Care/Special Instructions: Discharge home with left nephrostomy tube. Diet as tolerated. Drink plenty of fluids. Avoid strenuous activity. Change nephrostomy tube dressing as needed. Discharge Disposition: HOME SELF-CARE
[2020-12-31] MEDS: LACTATED RINGERS 1,000 ML IV SCH (13:06)
== END 2020-12-31 14:16 | disposition home or self-care (01) ==
LOC: OR 10:01 → 6PED 14:04 → OR 12-31 14:16
PROVIDERS: ATTEND Urology
DX: N20.0 Calculus of kidney (principal); Z86.16 Personal history of COVID-19; Z98.51 Tubal ligation status; Z98.890 Other specified postprocedural states; Z87.891 Personal history of nicotine dependence; Z88.0 Allergy status to penicillin
CPT/HCPCS: 81025; 86900; 86901; 85027; 86850; 82365; 50432; 74018; 50080; C1769 ×7; C2628; C1729 ×4; C1894; J2250; J2270; J1100; J2405; J1956; J2001; J3010; J1885 ×2; J0744; J1580; J2704; J1644 ×2

== ENCOUNTER → 2021-02-11 | Outpatient (CLI) | payer BC ==
--- NOTE | 2021-02-11 16:14 | US ---
EXAMINATION TYPE: US kidneys/renal and bladder DATE OF EXAM: 02/11/2021 COMPARISON: CLINICAL HISTORY: N20.0 Calculus of kidney. Hx of surgical removal of stone in left kidney EXAM MEASUREMENTS: Right Kidney: 9.6 x 4.8 x 4.1 cm Left Kidney: 10.9 x 4.2 x 4.1 cm Right Kidney: Medial anechoic lesion at hilum = 1.8 x 1.5 cm Left Kidney: No hydronephrosis or masses seen Bladder: mild/moderately distended, anechoic Bilateral Jets not seen There is no evidence for hydronephrosis at this point in time. No nephrolithiasis is seen. No solid masses are identified. The urinary bladder is anechoic. Bilateral ureteral jets are seen. IMPRESSION: Simple cyst right kidney.
== END | disposition home or self-care (01) ==
LOC: RADUSWWP 15:44
PROVIDERS: ATTEND Urology
DX: N28.1 Cyst of kidney, acquired (principal); Z87.442 Personal history of urinary calculi
CPT/HCPCS: 76770

== ENCOUNTER → 2021-04-21 | Outpatient (CLI) | payer BC ==
--- NOTE | 2021-04-23 12:43 | MM ---
Reason for exam: screening (asymptomatic). Last mammogram was performed 2 years and 3 months ago. History: Took hormonal contraceptives beginning at age 19. Physical Findings: A clinical breast exam by your physician is recommended on an annual basis and results should be correlated with mammographic findings. MG 3D Screening Mammo W/Cad Bilateral CC and MLO view(s) were taken. Prior study comparison: January 23, 2019, bilateral MG 3d screening mammo w/cad. The breast tissue is heterogeneously dense. This may lower the sensitivity of mammography. Lateral right CC asymmetric density does not persist on 3D images. No significant changes when compared with prior studies. ASSESSMENT: Benign, BI-RAD 2 RECOMMENDATION: Routine screening mammogram of both breasts in 1 year.
== END | disposition home or self-care (01) ==
LOC: RADMAMWWP 15:47
PROVIDERS: ATTEND Family Medicine
DX: Z12.31 Encounter for screening mammogram for malignant neoplasm of breast (principal)
CPT/HCPCS: 77063; 77067